=== PATIENT | female | born 1985 | race African-American/Black ===

== ENCOUNTER 2021-12-10 01:34 | Emergency (ER) | payer OTHER ==
[~2021-12-10] VITALS: Ht 170.2 cm; Wt 77.1 kg
[2021-12-10 06:29] VITALS: BP 132/90
== END 2021-12-10 07:15 | disposition home or self-care (01) ==
LOC: ER 01:34 → EDBD 01:34 → ER 07:15
DX: S46.911A Strain of unspecified muscle, fascia and tendon at shoulder and upper arm level, right arm, initial encounter (principal); M25.561 Pain in right knee; V43.62XA Car passenger injured in collision with other type car in traffic accident, initial encounter; Y93.89 Activity, other specified; Y92.410 Unspecified street and highway as the place of occurrence of the external cause; Y99.8 Other external cause status